=== PATIENT | female | born 1970 | race Caucasian/White ===

== ENCOUNTER 2017-10-29 06:01 | Day surgery (SDC) | payer OTHER ==
[2017-10-29] MEDS ORDERED: CEFAZOLIN 1 GM INJ (07:00)
[2017-10-29] MEDS ORDERED: FENTAnyl 50 MCG/ML VIAL ×2 (07:15→08:06)
[2017-10-29] MEDS ORDERED: KETOROLAC 30 MG INJ (07:25)
[2017-10-29] MEDS ORDERED: PROPOFOL 20 ML (07:25)
[2017-10-29] MEDS ORDERED: ONDANSETRON 4 MG INJ (07:26)
[2017-10-29] MEDS ORDERED: DEXAMETHASONE 4 MG/ML 1 ML INJ (07:26)
[2017-10-29] MEDS ORDERED: SILVER NITRATE SWAB (07:38)
[2017-10-29] MEDS ORDERED: LIDOCAINE 2% (SDV) 5 ML INJ (07:41)
[2017-10-29] MEDS ORDERED: FENTAnyl 50 MCG/ML VIAL IV ×2 (08:00)
[2017-10-29] MEDS ORDERED: HYDROmorphONE (0.2 MG/ML) 10ML SYG IV ×2 (08:00)
[2017-10-29] MEDS ORDERED: ALBUTEROL 0.083% (NEB) 2.5 MG/3 ML AMP HHN (08:00)
[2017-10-29] MEDS ORDERED: hydrALAzine 20 MG INJ IV (08:00)
[2017-10-29] MEDS ORDERED: LABETALOL HCL 20MG INJ IV (08:00)
[2017-10-29] MEDS ORDERED: DIPHENHYDRAMINE 50 MG INJ IV (08:00)
[2017-10-29] MEDS ORDERED: METOCLOPRAMIDE 10 MG INJ IV (08:00)
[2017-10-29] MEDS ORDERED: OXYCODONE/ACETAMINOPHEN (5/325) TAB PO ×2 (08:00)
[2017-10-29] MEDS ORDERED: MEPERIDINE 25 MG INJ IV (08:00)
[2017-10-29] MEDS ORDERED: ONDANSETRON 4 MG INJ IV (08:00)
[2017-10-29] MEDS ORDERED: EPHEDrine SULFATE 50 MG/5 ML SYG IV (08:00)
[2017-10-29] MEDS: FENTAnyl 50 MCG/ML VIAL IV (08:13)
[2017-10-29] MEDS ORDERED: ACETAMINOPHEN 325 MG TAB PO (08:30)
== END 2017-10-29 10:08 | disposition home or self-care (01) ==
LOC: SDS 06:01
DX: N92.0 Excessive and frequent menstruation with regular cycle (principal); D26.1 Other benign neoplasm of corpus uteri; M54.5 Low back pain; E66.01 Morbid (severe) obesity due to excess calories; F41.9 Anxiety disorder, unspecified
CPT/HCPCS: 58558; 84702; 86850; 86900; 86901; 88305

== ENCOUNTER 2019-05-15 08:12 | Day surgery (SDC) | payer OTHER ==
[~2019-05-15 08:12] MED LIST: SOD CHLORIDE 0.9% 1,000 ML IV
[2019-05-15] MEDS ORDERED: CEFAZOLIN 2 GM/50 ML (PMX) 50 ML IVPB (09:00)
[2019-05-15] MEDS: BUPIVACAINE 0.25% (MPF) 30 ML INJ (09:15)
[2019-05-15] MEDS: POLYMYXIN/BACITRACIN 1L IRRIG (09:16)
[2019-05-15] MEDS ORDERED: GLYCOPYRROLATE 0.4 MG INJ ×3 (09:45→10:09)
[2019-05-15] MEDS ORDERED: MEPERIDINE 100 MG INJ (09:45)
[2019-05-15] MEDS ORDERED: ROCURONIUM 50 MG INJ (09:45)
[2019-05-15] MEDS ORDERED: LIDOCAINE 2% (SDV) 5 ML INJ (09:45)
[2019-05-15] MEDS ORDERED: PROPOFOL 20 ML (09:45)
[2019-05-15] MEDS ORDERED: NEOSTIGMINE 3 MG/3 ML SYRINGE ×2 (09:45→10:09)
[2019-05-15] MEDS ORDERED: SUCCINYLCHOLINE CHLORIDE 100 MG/5 ML SYG IV (09:45)
[2019-05-15] MEDS ORDERED: METOCLOPRAMIDE 10 MG INJ (10:09)
[2019-05-15] MEDS ORDERED: ONDANSETRON 4 MG INJ (10:09)
[2019-05-15] MEDS ORDERED: CEFAZOLIN 1 GM INJ (10:09)
[2019-05-15] MEDS ORDERED: ATROPINE 1 MG/10 ML SYRINGE (10:28)
[2019-05-15] MEDS ORDERED: HYDROCODONE/APAP (5/325) TAB PO (10:30)
[2019-05-15] MEDS ORDERED: HYDROmorphONE 1 MG/5 ML IV SYRINGE IV ×3 (10:51→11:00)
[2019-05-15] MEDS ORDERED: LABETALOL HCL 20MG INJ IV (11:00)
[2019-05-15] MEDS ORDERED: METOCLOPRAMIDE 10 MG INJ IV (11:00)
[2019-05-15] MEDS ORDERED: ONDANSETRON 4 MG INJ IV (11:00)
[2019-05-15] MEDS ORDERED: DIPHENHYDRAMINE 50 MG INJ IV (11:00)
[2019-05-15] MEDS ORDERED: hydrALAzine 20 MG INJ IV (11:00)
[2019-05-15] MEDS ORDERED: EPHEDrine 25 MG/5 ML SYG IV (11:00)
[2019-05-15] MEDS ORDERED: OXYCODONE/ACETAMINOPHEN (5/325) TAB PO (11:00)
[2019-05-15] MEDS ORDERED: FENTAnyl 50 MCG/ML VIAL IV ×2 (11:00)
[2019-05-15] MEDS ORDERED: MIDAZOLAM 1 MG/ML 2 ML INJ IV (11:00)
[2019-05-15] MEDS ORDERED: FENTAnyl 50 MCG/ML VIAL (11:04)
[2019-05-15] MEDS: HYDROmorphONE 1 MG/5 ML IV SYRINGE IV (11:09)
[2019-05-15] MEDS: FENTAnyl 50 MCG/ML VIAL IV (11:10)
[2019-05-15] MEDS: MEPERIDINE 25 MG INJ IV (11:56)
[2019-05-15] MEDS: OXYCODONE/ACETAMINOPHEN (5/325) TAB PO (14:37)
== END 2019-05-15 14:30 | disposition home or self-care (01) ==
LOC: SDS 08:12
DX: K43.0 Incisional hernia with obstruction, without gangrene (principal); K66.0 Peritoneal adhesions (postprocedural) (postinfection); E66.01 Morbid (severe) obesity due to excess calories; F41.9 Anxiety disorder, unspecified
CPT/HCPCS: 49657; 71045; 84703; 93005